=== PATIENT | male | born 1975 | race Two or more races ===

== ENCOUNTER 2023-04-15 12:38 | Emergency (ER) | payer OTHER ==
[~2023-04-15] VITALS: Ht 180.3 cm; Wt 96.2 kg
[2023-04-15 15:49] LABS: HEMATOCRIT 44.4 % (39.0-48.0); HEMOGLOBIN 15.1 g/dL (13-16.00); MEAN CELL VOLUME 86.3 fL (80.0-100.00); MEAN CORPUSCULAR HEMOGLOBIN 29.4 pg (27.00-32.0); PLATELET COUNT 264 K/uL (150-450); RED BLOOD COUNT 5.15 M/uL (4.00-6.00); RED CELL DISTRIBUTION WIDTH 13.4 % (11.5-14.5)
[2023-04-15 15:59] LABS: ERYTHROCYTE SEDIMENTATION RATE 14 mm/hr
[2023-04-15] MEDS ORDERED: IBU800 MG PO (17:03)
[2023-04-15] MEDS ORDERED: PEPCID20 MG PO (17:03)
== END 2023-04-15 17:27 | disposition home or self-care (01) ==
LOC: ER
PROVIDERS: Nurse Practitioner Family
DX: M79.602 Pain in left arm (principal)